=== PATIENT | female | born 1995 | race Two or more races ===

== ENCOUNTER 2020-10-16 00:47 | Emergency (ER) | payer MEDICAID, OTHER ==
[~2020-10-16] VITALS: Ht 162.6 cm; Wt 74.4 kg
[2020-10-16] MEDS ORDERED: PROPOFOL 10 MG/ML 20 ML IV ONE (03:45)
[2020-10-16] MEDS ORDERED: SODIUM CHLORIDE 0.9% 1,000 ML IV ONE (03:45)
[2020-10-16] MEDS ORDERED: PROPOFOL 100 ML IV ONE (04:09)
[2020-10-16] MEDS ORDERED: KETOROLAC TROMETH 30 MG/ML 1ML VIAL IV ONE (04:45)
[2020-10-16 06:07] VITALS: BP 141/93
== END 2020-10-16 06:20 | disposition home or self-care (01) ==
LOC: ER 00:47
DX: S52.571A Other intraarticular fracture of lower end of right radius, initial encounter for closed fracture (principal); W01.0XXA Fall on same level from slipping, tripping and stumbling without subsequent striking against object, initial encounter; Y93.51 Activity, roller skating (inline) and skateboarding; Y92.89 Other specified places as the place of occurrence of the external cause; Y99.8 Other external cause status
CPT/HCPCS: 25605; 73090; 73110; 96361; 96374; 99152; 99285; J1885; J2704; J7030

== ENCOUNTER 2020-10-25 03:15 | Emergency (ER) | payer MEDICAID ==
[~2020-10-25] VITALS: Ht 162.6 cm; Wt 74.8 kg
[2020-10-25 03:56] LABS: Albumin 3.7 g/dL (3.4-5.0); Basophils # (auto) 0 10 ^3/uL (0-0.2); Basophils % (auto) 0.3 % (0.0-2.0); Eosinophils # (auto) 0.1 10 ^3/uL (0-0.8); Eosinophils % (auto) 0.9 % (0.0-7.0); Hematocrit 39.5 % (36.0-46.0); Hemoglobin 13.1 g/dL (12.2-16.2); Lymphocytes # (auto) 2.8 10 ^3/uL (0.4-5.4); Lymphocytes % (auto) 18.1 % (10.0-50.0); Mean Corpuscular Hemoglobin 27.4 pg (28.0-32.0); Mean Corpuscular Volume 82.8 fL (80.0-100.0); Monocytes # (auto) 0.7 10 ^3/uL (0-1.3); Monocytes % (auto) 4.6 % (0.0-12.0); Neutrophils # (auto) 11.8 10 ^3/uL (1.6-8.6); Neutrophils % (auto) 76.1 % (37.0-80.0); Nucleated Red Blood Cells % 0.1 %; Potassium 3.7 mmol/L (3.5-5.1); Red Blood Cells 4.77 10^6/uL (4.0-5.20); Red Cell Distribution Width 16.3 % (11.8-14.3); White Blood Cell 15.5 10^3/uL (4.4-10.8)
[2020-10-25 03:59] LABS: BUN/Creatinine Ratio 21.7; Bilirubin, Total 0.5 mg/dL (0.2-1.0); Total Protein 7.3 g/dL (6.4-8.2)
[2020-10-25] MEDS ORDERED: FAMOTIDINE 20 MG TAB PO ONE (04:15)
[2020-10-25] MEDS ORDERED: SUCRALFATE 1 GM/10 ML ORAL SUSP PO ONE (04:15)
[2020-10-25 05:35] LABS: Urine Bacteria MANY /hpf (None Seen); Urine Blood Negative /uL (Negative); Urine Mucus FEW (None Seen); Urine Specific Gravity 1.018 (1.001-1.035); Urine WBC 10 /hpf (0 - 5)
[2020-10-25 06:00] VITALS: BP 108/76
== END 2020-10-25 06:24 | disposition home or self-care (01) ==
LOC: ER 03:15
DX: N39.0 Urinary tract infection, site not specified (principal); R07.89 Other chest pain
CPT/HCPCS: 36415; 71046; 80053; 81001; 83690; 85025; 87086; 93005